=== PATIENT | female | born 1955 | race Hispanic/Latino ===

== ENCOUNTER 2018-02-01 09:56 | Emergency (ER) | payer BC, OTHER ==
[2018-02-01 10:13] VITALS: BMI 32.9
[2018-02-01 10:16] VITALS: BP 116/73; RESP 20; O2SAT 99
[2018-02-01] MEDS ORDERED: Sodium Chloride 0.9% 1,000 ML IV STA (11:06)
--- NOTE | 2018-02-01 11:41 | ED PDOC ---
HPI: General Adult Time Seen by Provider: 02/01/18 10:42 Chief Complaint (Nursing): Pain, Chronic Chief Complaint (Provider): facial pain, headache History Per: Patient History/Exam Limitations: no limitations Onset/Duration Of Symptoms: Days (5), Gradual Current Symptoms Are (Timing): Intermittent Episodes Severity: Moderate Additional Complaint(s): 62yo female presents c/o left facial pain, headache radiating to neck and L jaw , started spontaneously , was then intermittent but not constant. Took advil this morning without much relief. Denies change in speech, unsure if change in vision because of "old glasses" but denies focal change to left eye, notes some pain around L temporal area but mostly at angle of the jaw and below the L ear radiating to the neck. Denies dizziness, syncope, does not L ear feels full with popping sounds. Denies tinnitus, fever, rash to face or body or weakness numbness to extremities. States went to a dentist last week and had XR told not her teeth. PMD at [facility] Past Medical History Reviewed: Historical Data, Nursing Documentation, Vital Signs Vital Signs: Last Vital Signs Temp 98.4 F 02/01/18 15:29 Pulse 76 02/01/18 15:29 Resp 20 02/01/18 15:29 BP 116/73 02/01/18 15:29 Pulse Ox 99 02/01/18 15:29 - Medical History PMH: Arthritis, HTN, Hypercholesterolemia Denies: Kidney Stones, Chronic Kidney Disease - Surgical History Surgical History: Cholecystectomy - Family History Family History: States: Unknown Family Hx - Social History Current smoker - smoking cessation education provided: No - Immunization History Hx Tetanus Toxoid Vaccination: No Hx Pneumococcal Vaccination: Yes - Home Medications Home Medications: Ambulatory Orders Medication Instructions Recorded Ibuprofen [Motrin Tab] 600 mg PO Q6 PRN #15 tab 02/01/18 - Allergies Allergies/Adverse Reactions: Allergies Allergy/AdvReac Type Severity Reaction Status Date / Time iodine Allergy Mild RASH Verified 02/01/18 11:58 Penicillins Allergy Mild RASH Verified 02/01/18 11:58 shellfish derived Allergy Mild RASH Verified 02/01/18 11:57 Review of Systems Constitutional: Negative for: Fever ENT: Positive for: Other (facial pain). Negative for: Nose Discharge, Throat Pain, Throat Swelling Respiratory: Negative for: Cough Gastrointestinal: Negative for: Nausea, Abdominal Pain Genitourinary Female: Negative for: Dysuria Musculoskeletal: Positive for: Neck Pain. Negative for: Shoulder Pain Skin: Negative for: Rash Neurological: Positive for: Numbness (facial), Headache. Negative for: Weakness , Incoordination, Change in Speech, Confusion, Seizures, Altered Mental Status, Dizziness Psych: Negative for: Depression Physical Exam - Reviewed Nursing Documentation Reviewed: Yes Vital Signs Reviewed: Yes - Physical Exam Appears: Positive for: Well, Non-toxic, No Acute Distress Head Exam: Positive for: ATRAUMATIC, NORMAL INSPECTION, NORMOCEPHALIC Skin: Positive for: Normal Color, Warm, Rash (spot vesicular erythematous base to L thenar base) Eye Exam: Positive for: EOMI, Normal appearance, PERRL ENT: Positive for: Normal ENT Inspection, TM Is/Are (L mild fluid behind TM no erythema), Other (neg dental trauma or gingival erythema) Neck: Positive for: Normal, Painless ROM. Negative for: Decreased ROM, Pain On Movement Of Neck Cardiovascular/Chest: Positive for: Regular Rate, Rhythm Respiratory: Positive for: CNT, Normal Breath Sounds Pulses-Radial (L): 3+/4+ Pulses-Radial (R): 3+/4+ Gastrointestinal/Abdominal: Positive for: Soft. Negative for: Tenderness, Guarding Back: Positive for: Normal Inspection Extremity: Positive for: Normal ROM. Negative for: Pedal Edema, Deformity, Swelling Neurologic/Psych: Positive for: Alert, Oriented. Negative for: Motor/Sensory Deficits, Facial Droop - Laboratory Results Result Diagrams: 02/01/18 12:15 02/01/18 12:15 - ECG O2 Sat by Pulse Oximetry: 99 Medical Decision Making Medical Decision Making: workup for atypical symptoms, r/o temporal arteritis vs trigeminal neuralgia vs atypical migrane vs TMJ dysfunction vs early zoster vs sinusitis vs carotid dissection vs other Imaging ordered, basic labs and ESR ordered toradol ordered for pain labs and imaging reports reviewed no obvious abnormality, needs OMFS/ ENT evaluation stable for outpatient workup given lack of positive findings, ongoing symptoms for several days, and otherwise normal motor sensory neuro exam at time of presentation. rash may need vasculitis vs lyme vs other etiology workup, ESR normal here however Disposition - Clinical Impression Clinical Impression: Jaw pain, Rash - Patient ED Disposition Is Patient to be Admitted: No Counseled Patient/Family Regarding: Studies Performed, Diagnosis, Need For Followup, Rx Given - Disposition Disposition: Routine/Home Disposition Time: 14:30 Condition: STABLE Additional Instructions: Followup with your doctor and ENT for further testing. Return to ER for any worse or new symptoms. Use motrin 600mg every 6 hours as needed with small amount of food. Prescriptions: Ibuprofen [Motrin Tab] 600 mg PO Q6 PRN #15 tab PRN Reason: Pain, Moderate (4-7) Instructions: Skin Rash (DC), Headache, Adult (DC) Forms: [facility] (Mongolian)
--- NOTE | 2018-02-01 11:56 | CT ---
Date of service: 02/01/2018 PROCEDURE: CT HEAD WITHOUT CONTRAST. HISTORY: r/o ICH COMPARISON: None available. TECHNIQUE: Axial computed tomography images were obtained through the head/brain without intravenous contrast. Radiation dose: Total exam DLP = 712.85 mGy-cm. This CT exam was performed using one or more of the following dose reduction techniques: Automated exposure control, adjustment of the mA and/or kV according to patient size, and/or use of iterative reconstruction technique. FINDINGS: HEMORRHAGE: No intracranial hemorrhage. BRAIN: Normal mercado-white matter differentiation and density are appreciated throughout the cerebrum and cerebellum with the brainstem appearing unremarkable as well. There is no mass effect. There is no suspicious extra-axial fluid collection and the midline brain anatomy appears diffusely unremarkable. VENTRICLES: Unremarkable. No hydrocephalus. CALVARIUM: No destructive bony lesion or displaced fracture identified including through the skullbase. PARANASAL SINUSES: Unremarkable as visualized. No significant inflammatory changes. MASTOID AIR CELLS: Unremarkable as visualized. No inflammatory changes. OTHER FINDINGS: None. IMPRESSION: Unremarkable head CT without contrast.
--- NOTE | 2018-02-01 12:05 | CT ---
Date of service: 02/01/2018 PROCEDURE: CT MAXILLOFACIAL BONES WITHOUT CONTRAST HISTORY: L facial and neck pain COMPARISON: None TECHNIQUE: Contiguous axial CT images of the maxillofacial bones were obtained. Coronal and sagittal reformats were generated. Radiation dose: Total exam DLP = 692.44 mGy-cm. This CT exam was performed using one or more of the following dose reduction techniques: Automated exposure control, adjustment of the mA and/or kV according to patient size, and/or use of iterative reconstruction technique. FINDINGS: NASAL BONES: No fracture or destructive bony lesion identified. Leftward bony nasal septal deviation appears mild. ORBITS: Unremarkable. PARANASAL SINUSES/ MASTOIDS: Clear. MAXILLA: Unremarkable. MANDIBLE/ TEMPOROMANDIBULAR JOINTS: Extensive dental hardware related artifact obscures evaluation of the anterior and mid mandible sections with the mandible otherwise unremarkable including the bilateral tear mandibular joints. SKULL BASE: Unremarkable. TEMPORAL BONES: Middle ears and mastoid grossly unremarkable. OTHER FINDINGS: None. IMPRESSION: No displaced fracture or destructive bony lesion appreciated throughout CT of the facial bones. Extensive artifact related to dental hardware obscures evaluation of the anterior and middle segments of the mandible as discussed above. .
[2018-02-01 12:28] LABS: BASO # 0.1 K/uL (0.0-0.2); BASO % 0.9 % (0.0-2.0); EOS # 0.2 K/uL (0.0-0.7); HEMOGLOBIN 13.2 g/dL (12.0-16.0); LYMPH # 2.5 K/uL (1.0-4.3); LYMPH % 22.6 % (20.0-40.0); MEAN CELL VOLUME 95.4 fl (81.0-99.0); MEAN CORPUSCULAR HGB CONC 34.6 g/dL (33.0-37.0); MEAN PLATELET VOLUME 7.7 fl (7.2-11.7); MONO # 0.7 K/uL (0.0-0.8); MONO % 6.8 % (0.0-10.0); NEUT # 7.4 K/uL (1.8-7.0); NEUT % 67.7 % (50.0-75.0); RED CELL DISTRIBUTION WIDTH 12.8 % (11.5-14.5); WHITE BLOOD COUNT 10.9 K/uL (4.8-10.8)
--- NOTE | 2018-02-01 12:34 | CT ---
Date of service: 02/01/2018 PROCEDURE: CT NECK WITHOUT CONTRAST HISTORY: L neck pain COMPARISON: None. TECHNIQUE: CT of the neck without intravenous contrast. Coronal and sagittal reformats generated. Radiation dose: DLP 254.36 mGy-cm This CT exam was performed using one or more of the following dose reduction techniques: Automated exposure control, adjustment of the mA and/or kV according to patient size, and/or use of iterative reconstruction technique. FINDINGS: NASOPHARYNX: Unremarkable. SUPRAHYOID NECK: Unremarkable oropharynx, oral cavity, parapharyngeal space and retropharyngeal space. INFRAHYOID NECK: Unremarkable larynx, hypopharynx, and supraglottic space. Vocal cords intact. MASS: None. GLANDS: Parotid and submandibular glands unremarkable. Normal size thyroid gland, without nodule. LYMPH NODES: Normal. No lymphadenopathy. CERVICAL SPINE: No fracture or focal lesion. OTHER FINDINGS: None. IMPRESSION: Unremarkable non-contrast enhanced CT of the neck.
[2018-02-01 12:40] LABS: ALB/GLOB RATIO 1.2 (1.0-2.1); ALBUMIN 4.2 g/dL (3.5-5.0); ALT/SGPT 25 U/L (9-52); AST/SGOT 27 U/L (14-36); BLOOD UREA NITROGEN 18 mg/dl (7-17); CALCIUM 9.6 mg/dL (8.4-10.2); GFR AFRICAN-AMERICAN > 60; GFR NON-AFRICAN AMERICAN > 60
--- NOTE | 2018-02-01 14:42 | RAD ---
Date of service: 02/01/2018 HISTORY: neck pain COMPARISON: No prior. TECHNIQUE: Chest PA and lateral FINDINGS: LUNGS: No active pulmonary disease. PLEURA: No significant pleural effusion identified. No pneumothorax apparent. CARDIOVASCULAR: Normal. OSSEOUS STRUCTURES: No significant abnormalities. VISUALIZED UPPER ABDOMEN: Normal. OTHER FINDINGS: None. IMPRESSION: No acute cardiopulmonary disease appreciated.
--- NOTE | 2018-02-01 15:05 | CARD ---
APPROVED REPORT Date of service: 02/01/2018 EKG Measurement Heart [id number] <Conclusion> Sinus bradycardia Low voltage QRS Cannot rule out Anterior infarct, age undetermined Abnormal ECG
[2018-02-01 15:30] VITALS: PULSE 76; TEMP 98.4
== END 2018-02-01 15:36 | disposition home or self-care (01) ==
LOC: H.ER 09:56
DX: R68.84 Jaw pain (principal); R21 Rash and other nonspecific skin eruption; E78.00 Pure hypercholesterolemia, unspecified; Z88.0 Allergy status to penicillin; I10 Essential (primary) hypertension
CPT/HCPCS: 70450; 70486; 70490; 71046; 80053; 84443; 85025; 85651; 93005; 96361; 96374; 99283; J1885; J7030